=== PATIENT | male | born 1955 | race African-American/Black ===

== ENCOUNTER 2016-06-05 15:04 | Inpatient (IN) | payer OTHER ==
[2016-06-05 15:38] VITALS: BMI 29.7
--- NOTE | 2016-06-05 16:28 | HP ---
CIWA Score - CIWA Score Nausea/Vomitin-Mild Nausea/No Vomiting Muscle Tremors: 3 Anxiety: 4-Mod. Anxious/Guarded Agitation: 4-Moderately Restless Paroxysmal Sweats: 3 Orientation: 0-Oriented Tacttile Disturbances: 0-None Auditory Disturbances: 0-None Visual Disturbances: 0-None Headache: 0-None Present CIWA-Ar Total Score: 15 Admission ROS BHS - HPI Chief Complaint: WITHDRAWAL SX. Allergies/Adverse Reactions: Allergies Allergy/AdvReac Type Severity Reaction Status Date / Time No Known Allergies Allergy Verified 05/03/16 15:06 History of Present Illness: 60 Y/O MAN WITH A LONG HX. OF ALCOHOLISM IS SEEKING RE-ADMISSION TO DETOX. PT. WAS IN REHAB X 2 WKS. LEFT ON 05/20/16 THEN BEGAN DRINKING THE SAME DAY. PT. WAS SENT FOR DETOX BY "[facility]" BEFORE HE COULD BE PLACED IN HOUSING. Exam Limitations: No Limitations - Ebola screening Have you traveled outside of the country in the last 21 days: No (N) Have you had contact with anyone from an Ebola affected area: No Have you been sick,other than usual withdrawal symptoms: No Do you have a fever: No - Review of Systems Constitutional: Diaphoresis EENT: reports: No Symptoms Reported Respiratory: reports: No Symptoms reported Cardiac: reports: No Symptoms Reported GI: reports: No Symptoms Reported : reports: Frequency Musculoskeletal: reports: Joint Pain Integumentary: reports: Sweating Neuro: reports: Tremors Endocrine: reports: No Symptoms Reported Hematology: reports: No Symptoms Reported Psychiatric: reports: No Sypmtoms Reported Other Systems: Reviewed and Negative Patient History - Patient Medical History Hx Anemia: No Hx Asthma: Yes Hx Chronic Obstructive Pulmonary Disease (COPD): No Hx Cancer: No Hx Cardiac Disorders: No Hx Congestive Heart Failure: No Hx Hypertension: Yes (Intermitten hypertension) Hx Hypercholesterolemia: No Hx Pacemaker: No HX Cerebrovascular Accident: No Hx Seizures: No Hx Dementia: No Hx Diabetes: No Hx Gastrointestinal Disorders: No Hx Liver Disease: No Hx Genitourinary Disorders: No Hx Sexually Transmitted Disorders: No Hx Renal Disease (ESRD): No Hx Thyroid Disease: No Hx Human Immunodeficiency Virus (HIV): No Hx Hepatitis C: No (Last Tested approx. 2 weeks ago: NEGATIVE.) Hx Depression: No Hx Suicide Attempt: No Hx Bipolar Disorder: No Hx Schizophrenia: No - Patient Surgical History Past Surgical History: Yes Hx Neurologic Surgery: No Hx Cataract Extraction: No Hx Cardiac Surgery: No Hx Lung Surgery: No Hx Breast Surgery: No Hx Breast Biopsy: No Hx Abdominal Surgery: Yes (Sx perforated ulcer, in the 1980s.) Hx Appendectomy: No Hx Cholecystectomy: No Hx Genitourinary Surgery: No Hx Orthopedic Surgery: Yes (RT. WRIST FX; @ 1990s) Other Surgical History: Tonsillectomy during childhood. Anesthesia Reaction: No - PPD History Previous Implant?: Yes Documented Results: Negative w/proof Implanted On Prior [facility] Admission?: Yes Date: 03/17/16 Results: 0mm per records PPD to be Administered?: No - Smoking Cessation Smoking history: Current every day smoker Have you smoked in the past 12 months: Yes Aproximately how many cigarettes per day: 20 Cigars Per Day: 0 Hx Chewing Tobacco Use: No Initiated information on smoking cessation: Yes 'Breaking Loose' booklet given: 06/05/16 - Substance & Tx. History Hx Alcohol Use: Yes Hx Substance Use: No Substance Use Type: Alcohol Hx Substance Use Treatment: Yes (DETOX & REHAB) - Substances Abused Alcohol Route: Oral Frequency: Daily Amount used: BEER 1-2(6PACK), VODKA 1/2 PINT Age of first use: 14 Date of Last Use: 06/05/16 Family Disease History - Family Disease History Family Disease History: Heart Disease: Mother, [place]: Father (Prostate.) Admission Physical Exam BHS - Vital Signs Vital Signs: Vital Signs - 24 hr 06/05/16 15:35 Temperature 96.9 F L Pulse Rate 93 H Respiratory 18 Rate Blood Pressure 123/71 - Physical General Appearance: Yes: Alcohol on Breath, Tremorous, Sweating, Anxious HEENTM: Yes: Within Normal Limits Respiratory: Yes: Chest Non-Tender, Lungs Clear, Normal Breath Sounds Neck: Yes: Supple Breast: Yes: Breast Exam Deferred Cardiology: Yes: Regular Rhythm, Regular Rate, S1, S2 Abdominal: Yes: Normal Bowel Sounds, Non Tender, Soft Genitourinary: Yes: Within Normal Limits Back: Yes: Within Normal Limits Musculoskeletal: Yes: Joint swelling (RT. KNEE) Extremities: Yes: Tremors, Swelling (CHRONIC BOTH LOWER EXTREMITIES) Neurological: Yes: Fully Oriented, Alert Integumentary: Yes: Diaphoresis Lymphatic: Yes: Within Normal Limits - Diagnostic (1) Alcohol dependence with uncomplicated withdrawal Current Visit: Yes Status: Acute (2) Asthma Current Visit: Yes Status: Chronic Qualifiers: Asthma severity: mild intermittent Asthma complication type: uncomplicated Qualified Code(s): J45.20 - Mild intermittent asthma, uncomplicated (3) Nicotine dependence Current Visit: Yes Status: Chronic Qualifiers: Nicotine product type: cigarettes Substance use status: uncomplicated Qualified Code(s): F17.210 - Nicotine dependence, cigarettes, uncomplicated (4) Venous (peripheral) insufficiency Current Visit: Yes Status: Chronic Cleared for Admission S - Detox or Rehab [facility] Level of Care: Medically Managed Detox Regimen/Protocol: Librium S Breath Alcohol Content Breath Alcohol Content: 0.089 Urine Drug Screen - Results Drug Screen Negative: Yes
[2016-06-05] MEDS ORDERED: MAG HYDROX/AL HYDROX/SIMETH 30 ML UNIT-DOSE CUP PO PRN (16:36)
[2016-06-05] MEDS ORDERED: P-EPHED 60MG/TRIPROLIDI 2.5MG TABLET PO PRN (16:36)
[2016-06-05] MEDS ORDERED: chlordiazePOXIDE HCL 25 MG CAPSULE PO PRN (16:36)
[2016-06-05] MEDS ORDERED: hydrOXYzine PAMOATE 50 MG CAPSULE (FP) PO PRN (16:36)
[2016-06-05] MEDS ORDERED: MENTHOL/PHENOL 1 EACH UD MM PRN (16:36)
[2016-06-05] MEDS ORDERED: IBUPROFEN 400 MG TABLET (FP) PO PRN (16:36)
[2016-06-05] MEDS ORDERED: guaiFENesin/D-METHORPHAN HB 10 ML UNIT-DOSE CUPS PO PRN (16:36)
[2016-06-05] MEDS ORDERED: LOPERAMIDE HCL 2 MG CAPSULE PO PRN (16:36)
[2016-06-05] MEDS ORDERED: ACETAMINOPHEN 325 MG TABLET (FP) PO PRN (16:36)
[2016-06-05] MEDS ORDERED: NICOTINE POLACRILEX 2 MG GUM BC PRN (16:36)
[2016-06-05] MEDS ORDERED: MAGNESIUM HYDROX 2400MG/30ML ORAL SUSPENSION 30 ML CUP PO PRN (16:36)
[2016-06-05] MEDS ORDERED: chlordiazePOXIDE HCL 25 MG CAPSULE PO ONE (16:36)
[2016-06-05] MEDS ORDERED: MAGNESIUM CITRATE 300 ML BOTTLE PO PRN (16:36)
[2016-06-05] MEDS ORDERED: ALBUTEROL SO4 6.7 GM HFA INHALER IH PRN (16:38)
[2016-06-05] MEDS: chlordiazePOXIDE HCL 25 MG CAPSULE PO SCH ×2 (17:36→22:12)
[2016-06-05] MEDS: NICOTINE 21 MG/24 HOURS TOPICAL PATCH TD SCH (17:37)
[2016-06-05] MEDS: diphenhydrAMINE HCL 50 MG CAPSULE PO PRN (22:12)
[2016-06-05] MEDS: THIAMINE HCL 100 MG TABLET (FP) PO SCH (22:12)
[2016-06-05] MEDS: MONTELUKAST NA 10 MG TABLET PO SCH (22:12)
[2016-06-06] MEDS: chlordiazePOXIDE HCL 25 MG CAPSULE PO SCH ×4 (05:24→22:09)
[2016-06-06 09:48] LABS: MCH 29.3 pg (25.7-33.7); MCHC 32.8 g/dl (32.0-35.9); MEAN CELL VOLUME 89.3 fl (80-96); MEAN PLT VOLUME 7.8 fl (7.5-11.1); PLATELET COUNT 212 K/MM3 (134-434); RDW 15.4 % (11.9-15.9); URINE APPEARANCE SLCLOUDY; URINE BILIRUBIN NEGATIVE (NEGATIVE); URINE COLOR YELLOW; URINE GLUCOSE (UA) NEGATIVE (NEGATIVE); URINE KETONE NEGATIVE (NEGATIVE); URINE NITRITE POSITIVE (NEGATIVE); URINE UROBILINOGEN 4.0 E.U/dl E.U./dl (0.2-1.0); WHITE BLOOD COUNT 5.3 K/mm3 (4.0-10.0)
[2016-06-06 09:58] LABS: ALBUMIN 3.2 g/dl (3.4-5.0); ANION GAP 7 (8-16); CO2 35 mmol/L (21-32); CREATININE 0.8 mg/dL (0.7-1.3); GLUCOSE,RANDOM 87 mg/dL (74-106); SGOT/AST 14 U/L (15-37); SGPT/ALT 18 U/L (12-78)
[2016-06-06 09:59] LABS: ALK PHOS 59 U/L (45-117); TOT PROT 6.6 g/dl (6.4-8.2)
[2016-06-06] MEDS: PRENATAL VITAMINS W/ FOLIC ACID TABLET (FP) PO SCH (10:10)
[2016-06-06] MEDS: NICOTINE 21 MG/24 HOURS TOPICAL PATCH TD SCH (10:12)
--- NOTE | 2016-06-06 10:28 | PN ---
BHS CIWA - CIWA Score Nausea/Vomitin-Mild Nausea/No Vomiting Muscle Tremors: 4-Moderate,w/Arms Extend Anxiety: 3 Agitation: 3 Paroxysmal Sweats: 3 Orientation: 0-Oriented Tacttile Disturbances: 1-Very Mild Itch/Numbness Auditory Disturbances: 0-None Visual Disturbances: 0-None Headache: 0-None Present CIWA-Ar Total Score: 15 BHS Progress Note (SOAP) Subjective: anxiety,tremors,sweating,interrupted sleep,restless Objective: 06/06/16 10:27 Vital Signs - 8 hr 06/06/16 06/06/16 06/06/16 03:46 06:00 10:00 Temperature 98.2 F 99.0 F Pulse Rate 77 111 H Respiratory 18 18 20 Rate Blood Pressure 121/85 128/75 Laboratory Tests 06/06/16 07:30 WBC 5.3 D RBC 4.37 Hgb 12.8 D Hct 39.0 MCV 89.3 MCHC 32.8 RDW 15.4 D Plt Count 212 MPV 7.8 labs noted Assessment: 06/06/16 10:27 Withdrawal sx. Plan: Continue detox
[2016-06-06 10:42] LABS: URINE BLOOD 3+ (NEGATIVE); URINE PROTEIN 1+ (NEGATIVE)
[2016-06-06 10:43] LABS: URINE LEUK ESTERASE 3+ (NEGATIVE)
[2016-06-06 10:49] LABS: URINE BACTERIA RARE /hpf (NONE SEEN); URINE MUCUS RARE; URINE RBC 33 /hpf (0-3); URINE WBC 140 /hpf (3-5)
[2016-06-06] MEDS ORDERED: POTASSIUM CHLORIDE TABS 20 MEQ TABLET.ER (FP) PO ONE (11:29)
[2016-06-06] MEDS: LEVOFLOXACIN 500 MG TABLET (FP) PO SCH (12:06)
[2016-06-06] MEDS: POTASSIUM CHLORIDE TABS 20 MEQ TABLET.ER (FP) PO SCH (22:09)
[2016-06-06] MEDS: diphenhydrAMINE HCL 50 MG CAPSULE PO PRN (22:09)
[2016-06-06] MEDS: THIAMINE HCL 100 MG TABLET (FP) PO SCH (22:09)
[2016-06-06] MEDS: MONTELUKAST NA 10 MG TABLET PO SCH (22:31)
[2016-06-07] MEDS: chlordiazePOXIDE HCL 25 MG CAPSULE PO SCH ×2 (05:32→10:23)
[2016-06-07] MEDS: LEVOFLOXACIN 500 MG TABLET (FP) PO SCH (05:33)
--- NOTE | 2016-06-07 09:16 | PN ---
S CIWA - CIWA Score Nausea/Vomitin Muscle Tremors: 3 Anxiety: 3 Agitation: 2 Paroxysmal Sweats: 1-Minimal Palms Moist Orientation: 0-Oriented Tacttile Disturbances: 1-Very Mild Itch/Numbness Auditory Disturbances: 1-Very Mild Visual Disturbances: 1-Very Mild Sensitivity Headache: 2-Mild CIWA-Ar Total Score: 17 BHS Progress Note (SOAP) Subjective: ALERT,IRRITABLE,ANXIOUS,INTERRUPTED SLEEP,TREMOR Objective: 06/07/16 09:09 Vital Signs Temperature 97.9 F 06/07/16 06:00 Pulse Rate 72 06/07/16 06:00 Respiratory Rate 18 06/07/16 06:00 Blood Pressure 108/83 06/07/16 06:00 O2 Sat by Pulse Oximetry (%) EKG POOR TRACING NO CHEST PAIN,NO SOB,NO DIZZINESS 06/07/16 09:32 Laboratory Last Values WBC 5.3 K/mm3 (4.0-10.0) D 06/06/16 07:30 RBC 4.37 M/mm3 (4.00-5.60) 06/06/16 07:30 Hgb 12.8 GM/dL (11.7-16.9) D 06/06/16 07:30 Hct 39.0 % (35.4-49) 06/06/16 07:30 MCV 89.3 fl (80-96) 06/06/16 07:30 MCHC 32.8 g/dl (32.0-35.9) 06/06/16 07:30 RDW 15.4 % (11.9-15.9) D 06/06/16 07:30 Plt Count 212 K/MM3 (134-434) 06/06/16 07:30 MPV 7.8 fl (7.5-11.1) 06/06/16 07:30 Sodium 139 mmol/L (136-145) 06/06/16 07:20 Potassium 2.9 mmol/L (3.5-5.1) L* D 06/06/16 07:20 Chloride 97 mmol/L (98-107) L 06/06/16 07:20 Carbon Dioxide 35 mmol/L (21-32) H D 06/06/16 07:20 Anion Gap 7 (8-16) L 06/06/16 07:20 BUN 25 mg/dL (7-18) H D 06/06/16 07:20 Creatinine 0.8 mg/dL (0.7-1.3) 06/06/16 07:20 Creat Clearance w eGFR > 60 (>60) 06/06/16 07:20 Random Glucose 87 mg/dL (74-106) D 06/06/16 07:20 Calcium 9.0 mg/dL (8.5-10.1) 06/06/16 07:20 Total Bilirubin 1.0 mg/dL (0.2-1.0) D 06/06/16 07:20 AST 14 U/L (15-37) L 06/06/16 07:20 ALT 18 U/L (12-78) 06/06/16 07:20 Alkaline Phosphatase 59 U/L (45-117) 06/06/16 07:20 Total Protein 6.6 g/dl (6.4-8.2) 06/06/16 07:20 Albumin 3.2 g/dl (3.4-5.0) L 06/06/16 07:20 Urine Color Yellow 06/06/16 07:30 Urine Appearance Slcloudy 06/06/16 07:30 Urine pH 6.0 (5.0-8.0) 06/06/16 07:30 Ur Specific [place] 1.025 (1.001-1.035) 06/06/16 07:30 Urine Protein 1+ (NEGATIVE) H 06/06/16 07:30 Urine Glucose (UA) Negative (NEGATIVE) 06/06/16 07:30 Urine Ketones Negative (NEGATIVE) 06/06/16 07:30 Urine Blood 3+ (NEGATIVE) H 06/06/16 07:30 Urine Nitrite Positive (NEGATIVE) 06/06/16 07:30 Urine Bilirubin Negative (NEGATIVE) 06/06/16 07:30 Urine Urobilinogen 4.0 e.u/dl E.U./dl (0.2-1.0) 06/06/16 07:30 Ur Leukocyte Esterase 3+ (NEGATIVE) H 06/06/16 07:30 Urine RBC 33 /hpf (0-3) 06/06/16 07:30 Urine WBC 140 /hpf (3-5) 06/06/16 07:30 Urine Bacteria Rare /hpf (NONE SEEN) 06/06/16 07:30 Urine Mucus Rare 06/06/16 07:30 RPR Titer Nonreactive (NONREACTIVE) 06/06/16 07:20 Assessment: 06/07/16 09:33 WITHDRAWAL SYMPTOM Plan: CONTINUE DETOX,K 2.9 ON K DUR,REPAEAT UA,REPEAT BMP IN AM
[2016-06-07] MEDS: NICOTINE 21 MG/24 HOURS TOPICAL PATCH TD SCH (10:23)
[2016-06-07] MEDS: POTASSIUM CHLORIDE TABS 20 MEQ TABLET.ER (FP) PO SCH ×2 (10:23→22:05)
[2016-06-07] MEDS: PRENATAL VITAMINS W/ FOLIC ACID TABLET (FP) PO SCH (10:23)
[2016-06-07] MEDS: chlordiazePOXIDE 5 MG CAPSULE PO SCH ×2 (17:40→22:05)
[2016-06-07] MEDS: MONTELUKAST NA 10 MG TABLET PO SCH (22:06)
[2016-06-07] MEDS: diphenhydrAMINE HCL 50 MG CAPSULE PO PRN (22:06)
[2016-06-07] MEDS: THIAMINE HCL 100 MG TABLET (FP) PO SCH (22:06)
[2016-06-08] MEDS: chlordiazePOXIDE 5 MG CAPSULE PO SCH ×2 (05:41→10:09)
[2016-06-08] MEDS: LEVOFLOXACIN 500 MG TABLET (FP) PO SCH (05:41)
[2016-06-08] MEDS: PRENATAL VITAMINS W/ FOLIC ACID TABLET (FP) PO SCH (10:09)
[2016-06-08] MEDS: POTASSIUM CHLORIDE TABS 20 MEQ TABLET.ER (FP) PO SCH ×2 (10:09→22:13)
[2016-06-08] MEDS: NICOTINE 21 MG/24 HOURS TOPICAL PATCH TD SCH (10:10)
--- NOTE | 2016-06-08 10:21 | PN ---
BHS Progress Note (SOAP) Subjective: INTERRUPTED SEEP, BUT FEELS BETTER Objective: 06/08/16 10:18 Vital Signs Temperature 96.3 F L 06/08/16 06:35 Pulse Rate 84 06/08/16 06:35 Respiratory Rate 18 06/08/16 06:35 Blood Pressure 117/77 06/08/16 06:35 O2 Sat by Pulse Oximetry (%) Laboratory Tests 06/06/16 06/06/16 06/06/16 07:20 07:20 07:30 WBC 5.3 D RBC 4.37 Hgb 12.8 D Hct 39.0 MCV 89.3 MCHC 32.8 RDW 15.4 D Plt Count 212 MPV 7.8 Sodium 139 Potassium 2.9 L* D Chloride 97 L Carbon Dioxide 35 H D Anion Gap 7 L BUN 25 H D Creatinine 0.8 Creat Clearance w eGFR > 60 Random Glucose 87 D Calcium 9.0 Total Bilirubin 1.0 D AST 14 L ALT 18 Alkaline Phosphatase 59 Total Protein 6.6 Albumin 3.2 L Urine Color Urine Appearance Urine pH Ur Specific [place] Urine Protein Urine Glucose (UA) Urine Ketones Urine Blood Urine Nitrite Urine Bilirubin Urine Urobilinogen Ur Leukocyte Esterase Urine RBC Urine WBC Urine Bacteria Urine Mucus RPR Titer Nonreactive 06/06/16 07:30 WBC RBC Hgb Hct MCV MCHC RDW Plt Count MPV Sodium Potassium Chloride Carbon Dioxide Anion Gap BUN Creatinine Creat Clearance w eGFR Random Glucose Calcium Total Bilirubin AST ALT Alkaline Phosphatase Total Protein Albumin Urine Color Yellow Urine Appearance Slcloudy Urine pH 6.0 Ur Specific [place] 1.025 Urine Protein 1+ H Urine Glucose (UA) Negative Urine Ketones Negative Urine Blood 3+ H Urine Nitrite Positive Urine Bilirubin Negative Urine Urobilinogen 4.0 e.u/dl Ur Leukocyte Esterase 3+ H Urine RBC 33 Urine WBC 140 Urine Bacteria Rare Urine Mucus Rare RPR Titer PT AOX3 IN NAD AMBULATING Assessment: 06/08/16 10:19 WITHDRAWL SX'S HYPOKALEMIA RECIEVING K DUR Plan: CONT. DETOX INCREASE FLUIDS D/C IN AM
[2016-06-08 11:30] LABS: CALCIUM 9.5 mg/dL (8.5-10.1); CREATININE 0.8 mg/dL (0.7-1.3)
[2016-06-08 14:25] LABS: URINE APPEARANCE SLCLOUDY; URINE BILIRUBIN NEGATIVE (NEGATIVE); URINE BLOOD NEGATIVE (NEGATIVE); URINE COLOR LTYELLOW; URINE GLUCOSE (UA) NEGATIVE (NEGATIVE); URINE KETONE NEGATIVE (NEGATIVE); URINE LEUK ESTERASE NEGATIVE (NEGATIVE); URINE NITRITE NEGATIVE (NEGATIVE); URINE PROTEIN NEGATIVE (NEGATIVE); URINE UROBILINOGEN NEGATIVE E.U./dl (0.2-1.0)
[2016-06-08] MEDS: chlordiazePOXIDE HCL 10 MG CAPSULE PO SCH ×2 (17:49→22:13)
[2016-06-08] MEDS: THIAMINE HCL 100 MG TABLET (FP) PO SCH (22:13)
[2016-06-08] MEDS: MONTELUKAST NA 10 MG TABLET PO SCH (22:13)
[2016-06-09] MEDS: chlordiazePOXIDE HCL 10 MG CAPSULE PO SCH (05:21)
[2016-06-09] MEDS: LEVOFLOXACIN 500 MG TABLET (FP) PO SCH (05:21)
[2016-06-09 06:21] VITALS: BP 127/86; PULSE 81; TEMP 98.2
--- NOTE | 2016-06-09 08:40 | DS ---
[facility] Detox Discharge Summary Admission Date: 06/05/16 Discharge Date: 06/09/16 - History Present History: Alcohol Dependence, Cannabis Dependence, Cocaine Dependence - Physical Exam Results Vital Signs: Vital Signs Temperature 98.2 F 06/09/16 06:20 Pulse Rate 81 06/09/16 06:20 Respiratory Rate 18 06/09/16 06:20 Blood Pressure 127/86 06/09/16 06:20 O2 Sat by Pulse Oximetry (%) - Treatment Hospital Course: Detox Protocol Followed, Detoxed Safely, Responded well, Discharged Condition Good, Rehab Referral Accepted - Medication Discharge Medications: Ambulatory Orders Montelukast Na [Singulair -] 10 mg PO HS 05/03/16 Albuterol Sulfate Inhaler - [Ventolin HFA Inhaler -] 2 inh PO Q4H PRN #1 inhaler 05/19/16 Montelukast Na [Singulair -] 10 mg PO HS #30 tablet 05/19/16 - Diagnosis (1) Alcohol dependence with uncomplicated withdrawal Current Visit: Yes Status: Chronic (2) Asthma Current Visit: Yes Status: Chronic Qualifiers: Asthma severity: mild intermittent Asthma complication type: uncomplicated Qualified Code(s): J45.20 - Mild intermittent asthma, uncomplicated (3) Nicotine dependence Current Visit: Yes Status: Chronic Qualifiers: Nicotine product type: cigarettes Substance use status: uncomplicated Qualified Code(s): F17.210 - Nicotine dependence, cigarettes, uncomplicated (4) Venous (peripheral) insufficiency Current Visit: Yes Status: Chronic (5) Cannabis dependence Current Visit: Yes Status: Chronic (6) Cocaine abuse Current Visit: Yes Status: Chronic - AMA Did Patient Leave Against Medical Advice: No
[2016-06-09] MEDS: PRENATAL VITAMINS W/ FOLIC ACID TABLET (FP) PO SCH (09:40)
[2016-06-09] MEDS: POTASSIUM CHLORIDE TABS 20 MEQ TABLET.ER (FP) PO SCH (09:40)
== END 2016-06-09 10:25 | disposition home or self-care (01) | DRG 774 ==
LOC: YASAS 15:04 → Y6N 16:57
PROVIDERS: ADMIT Internal Medicine; ATTEND Internal Medicine
PROC: HZ2ZZZZ Detoxification Services for Substance Abuse Treatment (ICD-10-PCS; principal; 2016-06-05)
DX: F10.230 Alcohol dependence with withdrawal, uncomplicated (principal); F12.20 Cannabis dependence, uncomplicated; F14.10 Cocaine abuse, uncomplicated; F17.210 Nicotine dependence, cigarettes, uncomplicated; J45.20 Mild intermittent asthma, uncomplicated; E87.6 Hypokalemia; I87.2 Venous insufficiency (chronic) (peripheral); Z59.0 Homelessness
CPT/HCPCS: 36415; 80048; 80053; 81003; 81015; 85027; 86593; 87086; 87186; 93005; 93010

== ENCOUNTER 2016-06-12 13:04 | Inpatient (IN) | payer OTHER ==
[2016-06-12 14:24] VITALS: BMI 31.4
--- NOTE | 2016-06-12 14:48 | PN ---
S CIWA - CIWA Score Nausea/Vomitin-Mild Nausea/No Vomiting Muscle Tremors: 4-Moderate,w/Arms Extend Anxiety: 4-Mod. Anxious/Guarded Agitation: 1-Slight > Activity Paroxysmal Sweats: 1-Minimal Palms Moist Orientation: 0-Oriented Tacttile Disturbances: 1-Very Mild Itch/Numbness Auditory Disturbances: 1-Very Mild Visual Disturbances: 1-Very Mild Sensitivity Headache: 2-Mild CIWA-Ar Total Score: 16
--- NOTE | 2016-06-12 16:17 | HP ---
CIWA Score - CIWA Score Nausea/Vomitin-Mild Nausea/No Vomiting Muscle Tremors: 4-Moderate,w/Arms Extend Anxiety: 4-Mod. Anxious/Guarded Agitation: 1-Slight > Activity Paroxysmal Sweats: 1-Minimal Palms Moist Orientation: 0-Oriented Tacttile Disturbances: 1-Very Mild Itch/Numbness Auditory Disturbances: 1-Very Mild Visual Disturbances: 1-Very Mild Sensitivity Headache: 2-Mild CIWA-Ar Total Score: 16 Admission ROS BHS - HPI Chief Complaint: i need help to stop drinking alcohol,cocaine and marijuana Allergies/Adverse Reactions: Allergies Allergy/AdvReac Type Severity Reaction Status Date / Time No Known Allergies Allergy Verified 06/12/16 18:03 History of Present Illness: this 60 years old male with alcohol,cocaine and marijuana dependence,withdrawal symptom,last detox 06/05/16 to 06/09/15 syncope alcohol related nicotine dependence longest period of sobriety 3 years - Ebola screening Have you traveled outside of the country in the last 21 days: No Have you had contact with anyone from an Ebola affected area: No Have you been sick,other than usual withdrawal symptoms: No Do you have a fever: No - Review of Systems Constitutional: Loss of Appetite, Malaise, Night Sweats, Changes in sleep, Weakness EENT: reports: Nose Congestion Respiratory: reports: No Symptoms reported Cardiac: reports: No Symptoms Reported GI: reports: Nausea, Vomiting, Abdominal cramping : reports: No Symptoms Reported Musculoskeletal: reports: Back Pain, Muscle Pain Integumentary: reports: Dryness Neuro: reports: Headache, Tremors Endocrine: reports: No Symptoms Reported Hematology: reports: No Symptoms Reported Psychiatric: reports: Anxious, Depressed (insomnia) Patient History - Patient Medical History Hx Anemia: No Hx Asthma: Yes (on albuterol inhaler) Hx Chronic Obstructive Pulmonary Disease (COPD): No Hx Cancer: No Hx Cardiac Disorders: No Hx Congestive Heart Failure: No Hx Hypertension: Yes (Intermitten hypertension no med) Hx Hypercholesterolemia: No Hx Pacemaker: No HX Cerebrovascular Accident: No Hx Seizures: No Hx Dementia: No Hx Diabetes: No Hx Gastrointestinal Disorders: No Hx Liver Disease: No Hx Genitourinary Disorders: No Hx Sexually Transmitted Disorders: No Hx Renal Disease (ESRD): No Hx Thyroid Disease: No Hx Human Immunodeficiency Virus (HIV): No (2014 last negative) Hx Hepatitis C: No (Last Tested approx. 2 weeks ago: NEGATIVE.) Hx Depression: Yes (anxiety) Hx Suicide Attempt: No Hx Bipolar Disorder: No Hx Schizophrenia: No Other Medical History: no suicidal,no homicidal - Patient Surgical History Past Surgical History: Yes Hx Neurologic Surgery: No Hx Cataract Extraction: No Hx Cardiac Surgery: No Hx Lung Surgery: No Hx Breast Surgery: No Hx Breast Biopsy: No Hx Abdominal Surgery: Yes (Sx perforated ulcer, in the .) Hx Appendectomy: No Hx Cholecystectomy: No Hx Genitourinary Surgery: No Hx Orthopedic Surgery: Yes (RT. WRIST FX; @ ) Other Surgical History: Tonsillectomy during childhood. Anesthesia Reaction: No - PPD History Previous Implant?: Yes Documented Results: Negative w/proof Date: 03/17/16 Results: 0mm per records PPD to be Administered?: No - Smoking Cessation Smoking history: Current every day smoker Have you smoked in the past 12 months: Yes Aproximately how many cigarettes per day: 20 Cigars Per Day: 0 Hx Chewing Tobacco Use: No Initiated information on smoking cessation: Yes 'Breaking Loose' booklet given: 06/12/16 - Substance & Tx. History Hx Alcohol Use: Yes Hx Substance Use: Yes Substance Use Type: Alcohol, Cocaine, Marijuana Hx Substance Use Treatment: Yes ([facility] 06/05/16 tp 06/09/16) - Substances Abused Alcohol Route: Oral Frequency: Daily Amount used: 2pints of vodka/4 of 40 ozs of beer Age of first use: 14 Date of Last Use: 06/12/16 Cocaine Route: Inhalation Frequency: 3-6 times per week Amount used: 30$ Age of first use: 29 Date of Last Use: 06/10/16 Marijuana/Hashish Route: Smoking Frequency: 1-2 times per week Amount used: 20$ Age of first use: 24 Date of Last Use: 06/09/16 Family Disease History - Family Disease History Family Disease History: Heart Disease: Mother, [place]: Father (Prostate.) Admission Physical Exam S - Vital Signs Vital Signs: Vital Signs - 24 hr 06/12/16 14:22 Temperature 96.4 F L Pulse Rate 91 H Respiratory 18 Rate Blood Pressure 124/77 - Physical General Appearance: Yes: Moderate Distress, Intoxicated, Tremorous, Irritable, Sweating, Anxious HEENTM: Yes: Nasal Congestion Respiratory: Yes: Lungs Clear Neck: Yes: Within Normal Limits Breast: Yes: Within Normal Limits Cardiology: Yes: Within Normal Limits, Regular Rate, S1, S2 Abdominal: Yes: Within Normal Limits, Normal Bowel Sounds, Non Tender, Soft Genitourinary: Yes: Within Normal Limits Back: Yes: Muscle Spasm Extremities: Yes: Tremors Neurological: Yes: tank cooper II-XII NML intact, Fully Oriented, Alert, Motor Strength 5/5 Integumentary: Yes: Dry Lymphatic: Yes: Within Normal Limits - Diagnostic (1) Alcohol dependence with uncomplicated withdrawal Status: Acute (2) Asthma Status: Chronic Qualifiers: Asthma severity: mild intermittent Asthma complication type: uncomplicated Qualified Code(s): J45.20 - Mild intermittent asthma, uncomplicated (3) Cannabis dependence Status: Acute (4) Cocaine abuse Status: Chronic (5) Nicotine dependence Status: Chronic Qualifiers: Nicotine product type: cigarettes Substance use status: uncomplicated Qualified Code(s): F17.210 - Nicotine dependence, cigarettes, uncomplicated (6) Venous (peripheral) insufficiency Status: Chronic Cleared for Admission [facility] - Detox or Rehab [facility] Level of Care: Medically Managed Detox Regimen/Protocol: Librium [facility] Breath Alcohol Content Breath Alcohol Content: 0 Urine Drug Screen - Results Drug Screen Negative: No Urine Drug Screen Results: BZO-Benzodiazepines
[2016-06-12] MEDS ORDERED: IBUPROFEN 400 MG TABLET (FP) PO PRN (16:29)
[2016-06-12] MEDS ORDERED: ACETAMINOPHEN 325 MG TABLET (FP) PO PRN (16:29)
[2016-06-12] MEDS ORDERED: MAGNESIUM HYDROX 2400MG/30ML ORAL SUSPENSION 30 ML CUP PO PRN (16:29)
[2016-06-12] MEDS ORDERED: LOPERAMIDE HCL 2 MG CAPSULE PO PRN (16:29)
[2016-06-12] MEDS ORDERED: MENTHOL/PHENOL 1 EACH UD MM PRN (16:29)
[2016-06-12] MEDS ORDERED: P-EPHED 60MG/TRIPROLIDI 2.5MG TABLET PO PRN (16:29)
[2016-06-12] MEDS ORDERED: hydrOXYzine PAMOATE 25 MG CAPSULE (FP) PO PRN (16:29)
[2016-06-12] MEDS ORDERED: MAG HYDROX/AL HYDROX/SIMETH 30 ML UNIT-DOSE CUP PO PRN (16:29)
[2016-06-12] MEDS ORDERED: guaiFENesin/D-METHORPHAN HB 10 ML UNIT-DOSE CUPS PO PRN (16:29)
[2016-06-12] MEDS ORDERED: MAGNESIUM CITRATE 300 ML BOTTLE PO PRN (16:29)
[2016-06-12] MEDS ORDERED: chlordiazePOXIDE HCL 25 MG CAPSULE PO PRN (16:32)
[2016-06-12] MEDS ORDERED: chlordiazePOXIDE HCL 25 MG CAPSULE PO ONE (16:32)
[2016-06-12] MEDS ORDERED: ALBUTEROL SO4 6.7 GM HFA INHALER IH PRN (16:36)
[2016-06-12] MEDS ORDERED: chlordiazePOXIDE HCL 25 MG CAPSULE ONE (19:27)
[2016-06-12] MEDS: THIAMINE HCL 100 MG TABLET (FP) PO SCH (22:48)
[2016-06-12] MEDS: MONTELUKAST NA 10 MG TABLET PO SCH (22:48)
[2016-06-12] MEDS: chlordiazePOXIDE HCL 25 MG CAPSULE PO SCH (22:48)
[2016-06-13] MEDS: chlordiazePOXIDE HCL 25 MG CAPSULE PO SCH ×4 (05:25→22:36)
[2016-06-13] MEDS: PRENATAL VITAMINS W/ FOLIC ACID TABLET (FP) PO SCH (10:05)
[2016-06-13 10:30] LABS: MCH 29.5 pg (25.7-33.7); MCHC 32.9 g/dl (32.0-35.9); MEAN CELL VOLUME 89.8 fl (80-96); MEAN PLT VOLUME 7.9 fl (7.5-11.1); PLATELET COUNT 249 K/MM3 (134-434); RDW 15.7 % (11.9-15.9); WHITE BLOOD COUNT 3.4 K/mm3 (4.0-10.0)
[2016-06-13 10:41] LABS: ALBUMIN 2.9 g/dl (3.4-5.0); ALK PHOS 54 U/L (45-117); ANION GAP 7 (8-16); BILIRUBIN,TOTAL 0.2 mg/dL (0.2-1.0); CALCIUM 8.6 mg/dL (8.5-10.1); CO2 30 mmol/L (21-32); CREATININE 0.8 mg/dL (0.7-1.3); GLUCOSE,RANDOM 88 mg/dL (74-106); SGOT/AST 17 U/L (15-37); SGPT/ALT 26 U/L (12-78)
--- NOTE | 2016-06-13 16:40 | PN ---
S CIWA - CIWA Score Nausea/Vomitin-Mild Nausea/No Vomiting Muscle Tremors: 3 Anxiety: 4-Mod. Anxious/Guarded Agitation: 4-Moderately Restless Paroxysmal Sweats: No Perspiration Orientation: 0-Oriented Tacttile Disturbances: 1-Very Mild Itch/Numbness Auditory Disturbances: 0-None Visual Disturbances: 0-None Headache: 2-Mild CIWA-Ar Total Score: 15 BHS Progress Note (SOAP) Subjective: Restless, anxiety, tremor, nausea, interrupted sleep, sweating Objective: 06/13/16 16:39 Last Vital Signs Temp Pulse Resp BP Pulse Ox 96.4 F L 102 H 18 134/80 06/13/16 13:59 06/13/16 13:59 06/13/16 13:59 06/13/16 13:59 Laboratory Tests 06/13/16 06/13/16 06/13/16 08:00 08:00 08:00 WBC 3.4 L D RBC 3.82 L Hgb 11.3 L D Hct 34.3 L MCV 89.8 MCHC 32.9 RDW 15.7 Plt Count 249 MPV 7.9 Sodium 144 Potassium 4.1 Chloride 107 Carbon Dioxide 30 Anion Gap 7 L BUN 16 Creatinine 0.8 Creat Clearance w eGFR > 60 Random Glucose 88 D Calcium 8.6 Total Bilirubin 0.2 D AST 17 D ALT 26 D Alkaline Phosphatase 54 Total Protein 6.0 L Albumin 2.9 L RPR Titer Nonreactive Labs noted: serum albumin 2.9 Assessment: 06/13/16 16:40 Withdrawal symptoms Hypoalbuminemia noted Plan: Continue detox Hypoalbuminemia: high calorie/high protein diet
[2016-06-13] MEDS: diphenhydrAMINE HCL 50 MG CAPSULE PO PRN (22:36)
[2016-06-13] MEDS: MONTELUKAST NA 10 MG TABLET PO SCH (22:36)
[2016-06-13] MEDS: THIAMINE HCL 100 MG TABLET (FP) PO SCH (22:36)
[2016-06-14] MEDS: chlordiazePOXIDE HCL 25 MG CAPSULE PO SCH ×3 (05:42→17:02)
[2016-06-14] MEDS: PRENATAL VITAMINS W/ FOLIC ACID TABLET (FP) PO SCH (10:27)
[2016-06-14 11:05] LABS: URINE APPEARANCE CLEAR; URINE BILIRUBIN NEGATIVE (NEGATIVE); URINE BLOOD NEGATIVE (NEGATIVE); URINE COLOR STRAW; URINE GLUCOSE (UA) NEGATIVE (NEGATIVE); URINE KETONE NEGATIVE (NEGATIVE); URINE LEUK ESTERASE NEGATIVE (NEGATIVE); URINE NITRITE NEGATIVE (NEGATIVE); URINE PROTEIN NEGATIVE (NEGATIVE); URINE UROBILINOGEN NEGATIVE E.U./dl (0.2-1.0)
--- NOTE | 2016-06-14 11:06 | PN ---
BHS Progress Note (SOAP) Subjective: ANXIETY,TREMORS,SWEATING,INTERRUPTED SLEEP,RESTLESS Objective: 06/14/16 11:06 Vital Signs - 8 hr 06/14/16 06/14/16 06/14/16 03:19 06:17 10:17 Temperature 97.6 F 96.6 F L Pulse Rate 72 96 H Respiratory 18 18 19 Rate Blood Pressure 140/88 146/94 Laboratory Tests 06/13/16 06/13/16 06/13/16 08:00 08:00 08:00 WBC 3.4 L D RBC 3.82 L Hgb 11.3 L D Hct 34.3 L MCV 89.8 MCHC 32.9 RDW 15.7 Plt Count 249 MPV 7.9 Sodium 144 Potassium 4.1 Chloride 107 Carbon Dioxide 30 Anion Gap 7 L BUN 16 Creatinine 0.8 Creat Clearance w eGFR > 60 Random Glucose 88 D Calcium 8.6 Total Bilirubin 0.2 D AST 17 D ALT 26 D Alkaline Phosphatase 54 Total Protein 6.0 L Albumin 2.9 L RPR Titer Nonreactive LABS NOTED Assessment: 06/14/16 11:06 WITHDRAWAL SX. Plan: CONTINUE DETOX
--- NOTE | 2016-06-14 14:47 | CONSULT ---
[facility] Psychiatric Consult - Data Date of interview: 06/14/16 Admission source: [facility] Identifying data: Readmission to [facility] for this 60 y/o AA male seeking detox treatment on for alcohol,cocaine and marijuana dependence.Patient is single without children,homeless,unemployed and supported on Public Assistance. Substance Abuse History: - Substance & Tx. History. Hx Alcohol Use: Yes. Hx Substance Use: Yes. Substance Use Type: Alcohol, Cocaine, Marijuana. Hx Substance Use Treatment: Yes ([facility] 06/05/16 tp 06/09/16). - Substances Abused. Alcohol. Route: Oral. Frequency: Daily. Amount used: 2pints of vodka/4 of 40 ozs of beer. Age of first use: 14. Date of Last Use: 06/12/16. Cocaine. Route: Inhalation. Frequency: 3-6 times per week. Amount used: 30$. Age of first use: 29. Date of Last Use: 06/10/16. Marijuana/Hashish. Route: Smoking. Frequency: 1-2 times per week. Amount used: 20$. Age of first use: 24. Date of Last Use: 06/09/16. Confirmed by patient. Medical History: Significant for a history of anemia,perforated gastric ulcer ( ),orthosurgery for fracture of right wrist (1989),tonsillectomy during childhood,fracture of left leg () and a history of +PPD (treated with INH for six months). Psychiatric History: Patient denies. Physical/Sexual Abuse/Trauma History: Patient denies. Mental Status Exam - Mental Status Exam Alert and Oriented to: Time, Place, Person Cognitive Function: Good Patient Appearance: Well Groomed Mood: Nervous, Anxious, Hopeful Affect: Appropriate Patient Behavior: Fatigued, Cooperative Speech Pattern: Clear, Appropriate Voice Loudness: Normal Thought Process: Goal Oriented Thought Disorder: Not Present Hallucinations: Denies Suicidal Ideation: Denies Homicidal Ideation: Denies Insight/Judgement: Fair Sleep: Well Appetite: Good Muscle strength/Tone: Normal Gait/Station: Normal Psychiatric Findings - Problem List ([place] 1, 2,3) (1) Alcohol dependence with uncomplicated withdrawal Current Visit: Yes Status: Acute (2) Cannabis dependence Current Visit: Yes Status: Acute (3) Nicotine dependence Current Visit: Yes Status: Acute Qualifiers: Nicotine product type: cigarettes Substance use status: uncomplicated Qualified Code(s): F17.210 - Nicotine dependence, cigarettes, uncomplicated (4) Cocaine dependence Current Visit: Yes Status: Acute (5) Asthma Current Visit: No Status: Chronic Qualifiers: Asthma severity: mild intermittent Asthma complication type: uncomplicated Qualified Code(s): J45.20 - Mild intermittent asthma, uncomplicated (6) Venous (peripheral) insufficiency Current Visit: Yes Status: Chronic - Initial Treatment Plan Initial Treatment Plan: Psychoeducation.Detoxification.Observation.
[2016-06-14] MEDS: chlordiazePOXIDE 5 MG CAPSULE PO SCH (22:08)
[2016-06-14] MEDS: THIAMINE HCL 100 MG TABLET (FP) PO SCH (22:09)
[2016-06-14] MEDS: MONTELUKAST NA 10 MG TABLET PO SCH (22:09)
[2016-06-15] MEDS: chlordiazePOXIDE 5 MG CAPSULE PO SCH ×3 (05:53→17:51)
[2016-06-15] MEDS: PRENATAL VITAMINS W/ FOLIC ACID TABLET (FP) PO SCH (10:20)
--- NOTE | 2016-06-15 11:29 | PN ---
BHS Progress Note (SOAP) Subjective: ANXIETY, SWEATS/CHILLS. Objective: 06/15/16 11:32 Vital Signs Temperature 97.1 F L 06/15/16 09:49 Pulse Rate 87 06/15/16 09:49 Respiratory Rate 18 06/15/16 09:49 Blood Pressure 142/93 06/15/16 09:49 O2 Sat by Pulse Oximetry (%) Assessment: 06/15/16 11:32 WITHDRAWAL SX Plan: CONTINUE DETOX
[2016-06-15] MEDS: chlordiazePOXIDE HCL 10 MG CAPSULE PO SCH (22:02)
[2016-06-15] MEDS: MONTELUKAST NA 10 MG TABLET PO SCH (22:02)
[2016-06-15] MEDS: THIAMINE HCL 100 MG TABLET (FP) PO SCH (22:02)
[2016-06-15] MEDS: diphenhydrAMINE HCL 50 MG CAPSULE PO PRN (22:03)
[2016-06-16] MEDS: chlordiazePOXIDE HCL 10 MG CAPSULE PO SCH (05:52)
[2016-06-16 06:31] VITALS: BP 142/96; PULSE 93; TEMP 96.7
--- NOTE | 2016-06-16 08:52 | DS ---
[facility] Detox Discharge Summary Admission Date: 06/12/16 Discharge Date: 06/16/16 - History Present History: Alcohol Dependence, Cannabis Dependence, Cocaine Dependence Additional Comments: NONE Pertinent Past History: ASTHMA VENOUS INSUFFICIENCY - Physical Exam Results Vital Signs: Vital Signs Temperature 96.7 F L 06/16/16 06:31 Pulse Rate 93 H 06/16/16 06:31 Respiratory Rate 18 06/16/16 06:31 Blood Pressure 142/96 06/16/16 06:31 O2 Sat by Pulse Oximetry (%) Pertinent Admission Physical Exam Findings: WITHDRAWAL SX - Treatment Hospital Course: Detox Protocol Followed, Detoxed Safely, Responded well, Discharged Condition Good - Medication Discharge Medications: Ambulatory Orders Montelukast Na [Singulair -] 10 mg PO HS 05/03/16 Albuterol Sulfate Inhaler - [Ventolin HFA Inhaler -] 2 inh PO Q4H PRN #1 inhaler 06/09/16 Montelukast Na [Singulair -] 10 mg PO HS #30 tablet 06/09/16 - Diagnosis (1) Alcohol dependence with uncomplicated withdrawal Current Visit: Yes Status: Acute (2) Cannabis dependence Current Visit: Yes Status: Acute (3) Cocaine dependence Current Visit: Yes Status: Acute (4) Nicotine dependence Current Visit: Yes Status: Chronic Qualifiers: Nicotine product type: cigarettes Substance use status: uncomplicated Qualified Code(s): F17.210 - Nicotine dependence, cigarettes, uncomplicated (5) Venous (peripheral) insufficiency Current Visit: Yes Status: Chronic (6) Asthma Current Visit: Yes Status: Chronic Qualifiers: Asthma severity: mild intermittent Asthma complication type: uncomplicated Qualified Code(s): J45.20 - Mild intermittent asthma, uncomplicated - AMA Did Patient Leave Against Medical Advice: No
--- NOTE | 2016-06-16 09:46 | EKG ---
Test Reason : Blood Pressure : / mmHG Vent. Rate : 077 BPM Atrial Rate : 077 BPM P-R Int : 160 ms QRS Dur : 092 ms QT Int : 412 ms P-R-T Axes : 059 029 058 degrees QTc Int : 466 ms NORMAL SINUS RHYTHM NORMAL ECG NO PREVIOUS ECGS AVAILABLE Confirmed by YAMILET RIGGS, DANIEL ([id number]) on 06/16/2016 9:45:37 AM Referred By: Confirmed By:DANIEL WOODARD MD
== END 2016-06-16 09:35 | disposition home or self-care (01) | DRG 774 ==
LOC: YASAS 13:04 → Y3N 17:12
PROVIDERS: ADMIT Internal Medicine; ATTEND Internal Medicine
PROC: HZ2ZZZZ Detoxification Services for Substance Abuse Treatment (ICD-10-PCS; principal; 2016-06-12)
DX: F10.230 Alcohol dependence with withdrawal, uncomplicated (principal); F14.20 Cocaine dependence, uncomplicated; F12.20 Cannabis dependence, uncomplicated; F17.210 Nicotine dependence, cigarettes, uncomplicated; J45.20 Mild intermittent asthma, uncomplicated; D64.9 Anemia, unspecified; I87.2 Venous insufficiency (chronic) (peripheral); E88.09 Other disorders of plasma-protein metabolism, not elsewhere classified; Z87.11 Personal history of peptic ulcer disease; Z86.79 Personal history of other diseases of the circulatory system; Z59.0 Homelessness
CPT/HCPCS: 36415; 80053; 81003; 85027; 86593; 93005; 93010

== ENCOUNTER 2016-08-06 21:51 | Inpatient (IN) | payer OTHER ==
[2016-08-06 22:25] VITALS: BMI 29.7
--- NOTE | 2016-08-06 23:23 | HP ---
CIWA Score - CIWA Score Nausea/Vomitin-Mild Nausea/No Vomiting Muscle Tremors: 4-Moderate,w/Arms Extend Anxiety: 4-Mod. Anxious/Guarded Agitation: 4-Moderately Restless Paroxysmal Sweats: 1-Minimal Palms Moist Orientation: 3-Disoriented Date>2 days Tacttile Disturbances: 0-None Auditory Disturbances: 0-None Visual Disturbances: 0-None Headache: 1-Very Mild CIWA-Ar Total Score: 18 Admission ROS S - HPI Chief Complaint: WITHDRAWAL SX Allergies/Adverse Reactions: Allergies Allergy/AdvReac Type Severity Reaction Status Date / Time No Known Allergies Allergy Verified 06/12/16 18:03 History of Present Illness: 60 YEARS OLD MALE WITH LONG HISTORY OF ALCOHOL NICOTINE DEPENDENCE, DENIES MEDICAL DENIES MENTAL HEALTH ISSUE IS ADMITTED TO DETOX Exam Limitations: No Limitations - Ebola screening Have you traveled outside of the country in the last 21 days: No (N) Have you had contact with anyone from an Ebola affected area: No Have you been sick,other than usual withdrawal symptoms: No Do you have a fever: No - Review of Systems Constitutional: Chills, Changes in sleep, Weight Stable EENT: reports: Dental Problems (NO TEETH ABLE TO CHEW REGULAR FOOD) Respiratory: reports: No Symptoms reported Cardiac: reports: No Symptoms Reported GI: reports: Diarrhea, Nausea, Poor Fluid Intake, Abdominal cramping : reports: No Symptoms Reported Musculoskeletal: reports: No Symptoms Reported Integumentary: reports: No Symptoms Reported Neuro: reports: Tremors Endocrine: reports: No Symptoms Reported Hematology: reports: No Symptoms Reported Psychiatric: reports: Judgement Intact, Mood/Affect Appropiate Other Systems: Reviewed and Negative Patient History - Patient Medical History Hx Anemia: No Hx Asthma: Yes (on albuterol inhaler) Hx Chronic Obstructive Pulmonary Disease (COPD): No Hx Cancer: No Hx Cardiac Disorders: No Hx Congestive Heart Failure: No Hx Hypertension: No (DENIES ) Hx Hypercholesterolemia: No Hx Pacemaker: No HX Cerebrovascular Accident: No Hx Seizures: No Hx Dementia: No Hx Diabetes: No Hx Gastrointestinal Disorders: No Hx Liver Disease: No Hx Genitourinary Disorders: No Hx Sexually Transmitted Disorders: No Hx Renal Disease (ESRD): No Hx Thyroid Disease: No Hx Human Immunodeficiency Virus (HIV): No (2014 last negative) Hx Hepatitis C: No (Last Tested approx. 2 weeks ago: NEGATIVE.) Hx Depression: No (DENIES) Hx Suicide Attempt: No Hx Bipolar Disorder: No Hx Schizophrenia: No - Patient Surgical History Past Surgical History: Yes Hx Neurologic Surgery: No Hx Cataract Extraction: No Hx Cardiac Surgery: No Hx Lung Surgery: No Hx Breast Surgery: No Hx Breast Biopsy: No Hx Abdominal Surgery: Yes (Sx perforated ulcer, in the .) Hx Appendectomy: No Hx Cholecystectomy: No Hx Genitourinary Surgery: No Hx Orthopedic Surgery: Yes (RT. WRIST FX; @ ) Other Surgical History: Tonsillectomy during childhood. Anesthesia Reaction: No - PPD History Previous Implant?: Yes Documented Results: Negative w/o proof Implanted On Prior [facility] Admission?: Yes Date: 03/17/16 Results: 0mm per records PPD to be Administered?: No - Smoking Cessation Smoking history: Current every day smoker Have you smoked in the past 12 months: Yes Aproximately how many cigarettes per day: 50 Cigars Per Day: 0 Hx Chewing Tobacco Use: No Initiated information on smoking cessation: Yes 'Breaking Loose' booklet given: 08/06/16 - Substance & Tx. History Hx Alcohol Use: Yes Hx Substance Use: No Substance Use Type: Alcohol Hx Substance Use Treatment: Yes - Substances Abused Alcohol Route: Oral Frequency: Daily Amount used: ALEJO ELDER Age of first use: 14 Date of Last Use: 08/06/16 Family Disease History - Family Disease History Family Disease History: Heart Disease: Mother (), CA: Father (Prostate.) Admission Physical Exam BHS - Vital Signs Vital Signs: Vital Signs - 24 hr 08/06/16 22:23 Temperature 98.2 F Pulse Rate 116 H Respiratory 18 Rate Blood Pressure 127/86 - Physical General Appearance: Yes: Nourished, Appropriately Dressed, Moderate Distress, Alcohol on Breath, Tremorous, Irritable, Sweating, Anxious HEENTM: Yes: Hearing grossly Normal, Normal ENT Inspection, Normocephalic, Normal Voice Respiratory: Yes: Chest Non-Tender, Lungs Clear, Normal Breath Sounds, No Respiratory Distress, No Accessory Muscle Use Neck: Yes: Supple, Trachea in good position Breast: Yes: Breasts Symetrical Cardiology: Yes: Regular Rhythm, S1, S2, Tachycardia Abdominal: Yes: Non Tender, Soft, Increased Bowel Sounds Genitourinary: Yes: Within Normal Limits Back: Yes: Normal Inspection Musculoskeletal: Yes: full range of Motion, Gait Steady, Joint swelling (FEET - WALKING) Extremities: Yes: Normal Range of Motion, Non-Tender, Tremors Neurological: Yes: Alert, Motor Strength 5/5, Normal Mood/Affect, Normal Response Integumentary: Yes: Warm, Moist Lymphatic: Yes: Within Normal Limits - Diagnostic (1) Alcohol dependence with uncomplicated withdrawal Current Visit: Yes Status: Acute (2) Asthma Current Visit: Yes Status: Acute Qualifiers: Asthma severity: mild intermittent Asthma complication type: with status asthmaticus Qualified Code(s): J45.22 - Mild intermittent asthma with status asthmaticus (3) Nicotine dependence Current Visit: Yes Status: Acute Qualifiers: Nicotine product type: cigarettes Substance use status: in withdrawal Qualified Code(s): F17.213 - Nicotine dependence, cigarettes, with withdrawal Cleared for [facility]mission [facility] - [facility] Level of Care: Medically Managed Detox Regimen/Protocol: Librium [facility] Breath Alcohol Content Breath Alcohol Content: 0.062 Urine Drug Screen - Results Drug Screen Negative: No Urine Drug Screen Results: BZO-Benzodiazepines
[2016-08-06] MEDS ORDERED: guaiFENesin/D-METHORPHAN HB 10 ML UNIT-DOSE CUPS PO PRN (23:30)
[2016-08-06] MEDS ORDERED: ACETAMINOPHEN 325 MG TABLET (FP) PO PRN (23:30)
[2016-08-06] MEDS ORDERED: IBUPROFEN 400 MG TABLET (FP) PO PRN (23:30)
[2016-08-06] MEDS ORDERED: MENTHOL/PHENOL 1 EACH UD MM PRN (23:30)
[2016-08-06] MEDS ORDERED: P-EPHED 60MG/TRIPROLIDI 2.5MG TABLET PO PRN (23:30)
[2016-08-06] MEDS ORDERED: MAG HYDROX/AL HYDROX/SIMETH 30 ML UNIT-DOSE CUP PO PRN (23:30)
[2016-08-06] MEDS ORDERED: hydrOXYzine PAMOATE 50 MG CAPSULE (FP) PO PRN (23:30)
[2016-08-06] MEDS ORDERED: chlordiazePOXIDE HCL 25 MG CAPSULE PO PRN (23:30)
[2016-08-06] MEDS ORDERED: LOPERAMIDE HCL 2 MG CAPSULE PO PRN (23:30)
[2016-08-06] MEDS ORDERED: MAGNESIUM CITRATE 300 ML BOTTLE PO PRN (23:30)
[2016-08-06] MEDS ORDERED: NICOTINE POLACRILEX 4 MG GUM BC PRN (23:30)
[2016-08-06] MEDS ORDERED: MAGNESIUM HYDROX 2400MG/30ML ORAL SUSPENSION 30 ML CUP PO PRN (23:30)
[2016-08-06] MEDS ORDERED: ALBUTEROL SO4 2.5/IPRATROPIUM 0.5 INH SOL 3 ML VIAL.NEB. NEB PRN (23:39)
[2016-08-06] MEDS ORDERED: ALBUTEROL SO4 6.7 GM HFA INHALER IH PRN (23:39)
[2016-08-06] MEDS ORDERED: COLLOIDAL OATMEAL 1 BAR EACH TP PRN (23:41)
[2016-08-07] MEDS: chlordiazePOXIDE HCL 25 MG CAPSULE PO SCH ×5 (00:17→22:20)
[2016-08-07] MEDS: NICOTINE 21 MG/24 HOURS TOPICAL PATCH TD SCH (10:15)
[2016-08-07] MEDS: PRENATAL VITAMINS W/ FOLIC ACID TABLET (FP) PO SCH (10:15)
[2016-08-07 11:18] LABS: MCH 29.7 pg (25.7-33.7); MCHC 32.9 g/dl (32.0-35.9); MEAN CELL VOLUME 90.5 fl (80-96); MEAN PLT VOLUME 8.6 fl (7.5-11.1); PLATELET COUNT 176 K/MM3 (134-434); RDW 18.5 % (11.9-15.9)
[2016-08-07 11:33] LABS: ALBUMIN 3.4 g/dl (3.4-5.0); ALK PHOS 106 U/L (45-117); ANION GAP 14 (8-16); BILIRUBIN,TOTAL 0.8 mg/dL (0.2-1.0); CALCIUM 8.5 mg/dL (8.5-10.1); CO2 37 mmol/L (21-32); CREATININE 1.2 mg/dL (0.7-1.3); GLUCOSE,RANDOM 101 mg/dL (74-106); SGOT/AST 37 U/L (15-37); SGPT/ALT 22 U/L (12-78); TOT PROT 6.9 g/dl (6.4-8.2)
--- NOTE | 2016-08-07 11:48 | PN ---
[facility] CIWA - CIWA Score Nausea/Vomitin Muscle Tremors: 3 Anxiety: 3 Agitation: 2 Paroxysmal Sweats: 1-Minimal Palms Moist Orientation: 0-Oriented Tacttile Disturbances: 1-Very Mild Itch/Numbness Auditory Disturbances: 1-Very Mild Visual Disturbances: 1-Very Mild Sensitivity Headache: 2-Mild CIWA-Ar Total Score: 17 BHS Progress Note (SOAP) Subjective: ALERT,IRRITABLE,ANXIOUS,INTERRUPTED SLEEP,TREMOR Objective: 08/07/16 11:44 Vital Signs Temperature 99.1 F 08/07/16 10:24 Pulse Rate 120 H 08/07/16 10:24 Respiratory Rate 16 08/07/16 10:24 Blood Pressure 121/77 08/07/16 10:24 O2 Sat by Pulse Oximetry (%) EKG POOR QUALITY TO REPEAT EKG TODAY 08/07/16 11:46 Laboratory Last Values WBC 4.0 K/mm3 (4.0-10.0) 08/07/16 08:00 RBC 4.78 M/mm3 (4.00-5.60) D 08/07/16 08:00 Hgb 14.2 GM/dL (11.7-16.9) D 08/07/16 08:00 Hct 43.2 % (35.4-49) D 08/07/16 08:00 MCV 90.5 fl (80-96) 08/07/16 08:00 MCHC 32.9 g/dl (32.0-35.9) 08/07/16 08:00 RDW 18.5 % (11.9-15.9) H D 08/07/16 08:00 Plt Count 176 K/MM3 (134-434) D 08/07/16 08:00 MPV 8.6 fl (7.5-11.1) 08/07/16 08:00 Sodium 144 mmol/L (136-145) 08/07/16 08:00 Chloride 93 mmol/L (98-107) L D 08/07/16 08:00 Carbon Dioxide 37 mmol/L (21-32) H D 08/07/16 08:00 Anion Gap 14 (8-16) 08/07/16 08:00 BUN 8 mg/dL (7-18) D 08/07/16 08:00 Creatinine 1.2 mg/dL (0.7-1.3) D 08/07/16 08:00 Creat Clearance w eGFR > 60 (>60) 08/07/16 08:00 Random Glucose 101 mg/dL (74-106) 08/07/16 08:00 Calcium 8.5 mg/dL (8.5-10.1) 08/07/16 08:00 Total Bilirubin 0.8 mg/dL (0.2-1.0) D 08/07/16 08:00 AST 37 U/L (15-37) D 08/07/16 08:00 ALT 22 U/L (12-78) 08/07/16 08:00 Alkaline Phosphatase 106 U/L (45-117) D 08/07/16 08:00 Total Protein 6.9 g/dl (6.4-8.2) 08/07/16 08:00 Albumin 3.4 g/dl (3.4-5.0) 08/07/16 08:00 08/07/16 11:47 K 2.7 BY LAB HYPOKALEMIA Assessment: 08/07/16 11:48 WITHDRAWAL SYMPTOM Plan: CONTINUE DETOX,K 2.7,KDUR REPLACEMENT
[2016-08-07] MEDS ORDERED: POTASSIUM CHLORIDE TABS 20 MEQ TABLET.ER (FP) PO ONE (11:49)
[2016-08-07 13:14] LABS: URINE APPEARANCE CLEAR; URINE BLOOD NEGATIVE (NEGATIVE); URINE COLOR AMBER; URINE GLUCOSE (UA) NEGATIVE (NEGATIVE); URINE KETONE NEGATIVE (NEGATIVE); URINE LEUK ESTERASE NEGATIVE (NEGATIVE); URINE NITRITE NEGATIVE (NEGATIVE); URINE UROBILINOGEN 4.0 E.U/dl E.U./dl (0.2-1.0)
[2016-08-07 13:36] LABS: URINE PROTEIN 1+ (NEGATIVE)
[2016-08-07 13:48] LABS: URINE BACTERIA RARE /hpf (NONE SEEN); URINE HYALINE CAST 3 /lpf; URINE MUCUS FEW; URINE RBC 3 /hpf (0-3); URINE WBC 2 /hpf (3-5)
[2016-08-07] MEDS: POTASSIUM CHLORIDE TABS 20 MEQ TABLET.ER (FP) PO SCH (22:20)
[2016-08-07] MEDS: THIAMINE HCL 100 MG TABLET (FP) PO SCH (22:20)
[2016-08-07] MEDS: MINERAL OIL/PETROLAT/WATER TOPICAL CREAM 113 GM JAR TP SCH (22:21)
[2016-08-08] MEDS: chlordiazePOXIDE HCL 25 MG CAPSULE PO SCH ×3 (05:26→17:55)
[2016-08-08] MEDS: POTASSIUM CHLORIDE TABS 20 MEQ TABLET.ER (FP) PO SCH ×2 (10:56→22:11)
[2016-08-08] MEDS: PRENATAL VITAMINS W/ FOLIC ACID TABLET (FP) PO SCH (10:56)
[2016-08-08] MEDS: NICOTINE 21 MG/24 HOURS TOPICAL PATCH TD SCH (10:56)
--- NOTE | 2016-08-08 12:19 | PN ---
[facility] CIWA - CIWA Score Nausea/Vomitin Muscle Tremors: 3 Anxiety: 3 Agitation: 2 Paroxysmal Sweats: 1-Minimal Palms Moist Orientation: 0-Oriented Tacttile Disturbances: 1-Very Mild Itch/Numbness Auditory Disturbances: 1-Very Mild Visual Disturbances: 1-Very Mild Sensitivity Headache: 2-Mild CIWA-Ar Total Score: 17 BHS Progress Note (SOAP) Subjective: ALERT,IRRITABLE,ANXIOUS,INTERRUPTED SLEEP,TREMOR Objective: 08/08/16 12:18 Vital Signs Temperature 98.1 F 08/08/16 09:52 Pulse Rate 113 H 08/08/16 09:52 Respiratory Rate 16 08/08/16 09:52 Blood Pressure 120/88 08/08/16 09:52 O2 Sat by Pulse Oximetry (%) Laboratory Last Values WBC 4.0 K/mm3 (4.0-10.0) 08/07/16 08:00 RBC 4.78 M/mm3 (4.00-5.60) D 08/07/16 08:00 Hgb 14.2 GM/dL (11.7-16.9) D 08/07/16 08:00 Hct 43.2 % (35.4-49) D 08/07/16 08:00 MCV 90.5 fl (80-96) 08/07/16 08:00 MCHC 32.9 g/dl (32.0-35.9) 08/07/16 08:00 RDW 18.5 % (11.9-15.9) H D 08/07/16 08:00 Plt Count 176 K/MM3 (134-434) D 08/07/16 08:00 MPV 8.6 fl (7.5-11.1) 08/07/16 08:00 Sodium 144 mmol/L (136-145) 08/07/16 08:00 Potassium 2.7 mmol/L (3.5-5.1) L* D 08/07/16 08:00 Chloride 93 mmol/L (98-107) L D 08/07/16 08:00 Carbon Dioxide 37 mmol/L (21-32) H D 08/07/16 08:00 Anion Gap 14 (8-16) 08/07/16 08:00 BUN 8 mg/dL (7-18) D 08/07/16 08:00 Creatinine 1.2 mg/dL (0.7-1.3) D 08/07/16 08:00 Creat Clearance w eGFR > 60 (>60) 08/07/16 08:00 Random Glucose 101 mg/dL (74-106) 08/07/16 08:00 Calcium 8.5 mg/dL (8.5-10.1) 08/07/16 08:00 Total Bilirubin 0.8 mg/dL (0.2-1.0) D 08/07/16 08:00 AST 37 U/L (15-37) D 08/07/16 08:00 ALT 22 U/L (12-78) 08/07/16 08:00 Alkaline Phosphatase 106 U/L (45-117) D 08/07/16 08:00 Total Protein 6.9 g/dl (6.4-8.2) 08/07/16 08:00 Albumin 3.4 g/dl (3.4-5.0) 08/07/16 08:00 Urine Color Nydia 08/07/16 10:31 Urine Appearance Clear 08/07/16 10:31 Urine pH 6.0 (5.0-8.0) 08/07/16 10:31 Ur Specific [place] 1.026 (1.001-1.035) 08/07/16 10:31 Urine Protein 1+ (NEGATIVE) H 08/07/16 10:31 Urine Glucose (UA) Negative (NEGATIVE) 08/07/16 10:31 Urine Ketones Negative (NEGATIVE) 08/07/16 10:31 Urine Blood Negative (NEGATIVE) 08/07/16 10:31 Urine Nitrite Negative (NEGATIVE) 08/07/16 10:31 Urine Bilirubin 2.0 (NEGATIVE) 08/07/16 10:31 Urine Urobilinogen 4.0 e.u/dl E.U./dl (0.2-1.0) 08/07/16 10:31 Ur Leukocyte Esterase Negative (NEGATIVE) 08/07/16 10:31 Urine RBC 3 /hpf (0-3) 08/07/16 10:31 Urine WBC 2 /hpf (3-5) 08/07/16 10:31 Ur Epithelial Cells Rare /hpf (FEW) 08/07/16 10:31 Urine Bacteria Rare /hpf (NONE SEEN) 08/07/16 10:31 Hyaline Casts 3 /lpf 08/07/16 10:31 Urine Mucus Few 08/07/16 10:31 RPR Titer Nonreactive (NONREACTIVE) 08/07/16 08:00 Assessment: 08/08/16 12:18 WITHDRAWAL SYMPTOM Plan: CONTINUE DETOX,ON K DUR FOR HYPOKALEMIA K IS 2.7 SINCE YESTERDAY,REPEAT CMP IN AM
[2016-08-08] MEDS: diphenhydrAMINE HCL 50 MG CAPSULE PO PRN (22:11)
[2016-08-08] MEDS: chlordiazePOXIDE 5 MG CAPSULE PO SCH (22:11)
[2016-08-08] MEDS: THIAMINE HCL 100 MG TABLET (FP) PO SCH (22:11)
[2016-08-08] MEDS: MINERAL OIL/PETROLAT/WATER TOPICAL CREAM 113 GM JAR TP SCH (22:12)
[2016-08-08] MEDS: cloNIDine HCL 0.1 MG TABLET PO PRN (22:13)
--- NOTE | 2016-08-08 22:44 | EKG ---
Test Reason : Blood Pressure : / mmHG Vent. Rate : 112 BPM Atrial Rate : 112 BPM P-R Int : 184 ms QRS Dur : 098 ms QT Int : 350 ms P-R-T Axes : 080 047 051 degrees QTc Int : 477 ms POOR DATA QUALITY, INTERPRETATION MAY BE ADVERSELY AFFECTED SINUS TACHYCARDIA NONSPECIFIC T WAVE ABNORMALITY BORDERLINE ECG WHEN COMPARED WITH ECG OF 12-JUN-2016 19:47, VENT. RATE HAS INCREASED Confirmed by ELENI RIGGS, YO ([id number]) on 08/08/2016 10:43:38 PM Referred By: Confirmed By:YO KNOWLES MD
[2016-08-09] MEDS: chlordiazePOXIDE 5 MG CAPSULE PO SCH ×3 (05:49→17:26)
[2016-08-09] MEDS: PRENATAL VITAMINS W/ FOLIC ACID TABLET (FP) PO SCH (10:21)
[2016-08-09] MEDS: POTASSIUM CHLORIDE TABS 20 MEQ TABLET.ER (FP) PO SCH ×2 (10:21→22:27)
[2016-08-09] MEDS: NICOTINE 21 MG/24 HOURS TOPICAL PATCH TD SCH (10:22)
[2016-08-09 11:06] LABS: ALBUMIN 2.7 g/dl (3.4-5.0); ALK PHOS 82 U/L (45-117); ANION GAP 8 (8-16); BILIRUBIN,TOTAL 0.4 mg/dL (0.2-1.0); CALCIUM 8.5 mg/dL (8.5-10.1); CO2 37 mmol/L (21-32); CREATININE 0.8 mg/dL (0.7-1.3); GLUCOSE,RANDOM 96 mg/dL (74-106); SGOT/AST 28 U/L (15-37); SGPT/ALT 18 U/L (12-78); TOT PROT 6.1 g/dl (6.4-8.2)
--- NOTE | 2016-08-09 11:09 | PN ---
BHS Progress Note (SOAP) Subjective: sweats Objective: 08/09/16 11:07 Vital Signs Temperature 97.9 F 08/09/16 10:14 Pulse Rate 109 H 08/09/16 10:14 Respiratory Rate 16 08/09/16 10:14 Blood Pressure 117/81 08/09/16 10:14 O2 Sat by Pulse Oximetry (%) Laboratory Tests 08/07/16 08/07/16 08/07/16 08:00 08:00 08:00 WBC 4.0 RBC 4.78 D Hgb 14.2 D Hct 43.2 D MCV 90.5 MCHC 32.9 RDW 18.5 H D Plt Count 176 D MPV 8.6 Sodium 144 Potassium 2.7 L* D Chloride 93 L D Carbon Dioxide 37 H D Anion Gap 14 BUN 8 D Creatinine 1.2 D Creat Clearance w eGFR > 60 Random Glucose 101 Calcium 8.5 Total Bilirubin 0.8 D AST 37 D ALT 22 Alkaline Phosphatase 106 D Total Protein 6.9 Albumin 3.4 Urine Color Urine Appearance Urine pH Ur Specific [place] Urine Protein Urine Glucose (UA) Urine Ketones Urine Blood Urine Nitrite Urine Bilirubin Urine Urobilinogen Ur Leukocyte Esterase Urine RBC Urine WBC Ur Epithelial Cells Urine Bacteria Hyaline Casts Urine Mucus RPR Titer Nonreactive 08/07/16 10:31 WBC RBC Hgb Hct MCV MCHC RDW Plt Count MPV Sodium Potassium Chloride Carbon Dioxide Anion Gap BUN Creatinine Creat Clearance w eGFR Random Glucose Calcium Total Bilirubin AST ALT Alkaline Phosphatase Total Protein Albumin Urine Color Nydia Urine Appearance Clear Urine pH 6.0 Ur Specific [place] 1.026 Urine Protein 1+ H Urine Glucose (UA) Negative Urine Ketones Negative Urine Blood Negative Urine Nitrite Negative Urine Bilirubin 2.0 Urine Urobilinogen 4.0 e.u/dl Ur Leukocyte Esterase Negative Urine RBC 3 Urine WBC 2 Ur Epithelial Cells Rare Urine Bacteria Rare Hyaline Casts 3 Urine Mucus Few RPR Titer pt aox3 in nad ambulating Assessment: 08/09/16 11:07 withdrawal sx;s hypokalemia -f/up pending labs Plan: cont. detox increase fluids if k corrected d/c in am
--- NOTE | 2016-08-09 11:32 | EKG ---
Test Reason : Blood Pressure : / mmHG Vent. Rate : 111 BPM Atrial Rate : 111 BPM P-R Int : 130 ms QRS Dur : 100 ms QT Int : 368 ms P-R-T Axes : 061 033 040 degrees QTc Int : 500 ms SINUS TACHYCARDIA OTHERWISE NORMAL ECG WHEN COMPARED WITH ECG OF 07-AUG-2016 00:10, NO SIGNIFICANT CHANGE WAS FOUND Confirmed by MARIAM VARGAS MD ([id number]) on 08/09/2016 11:31:54 AM Referred By: Confirmed By:MARIAM VARGAS MD
[2016-08-09] MEDS: cloNIDine HCL 0.1 MG TABLET PO PRN (22:27)
[2016-08-09] MEDS: THIAMINE HCL 100 MG TABLET (FP) PO SCH (22:27)
[2016-08-09] MEDS: chlordiazePOXIDE HCL 10 MG CAPSULE PO SCH (22:27)
[2016-08-09] MEDS: diphenhydrAMINE HCL 50 MG CAPSULE PO PRN (22:27)
[2016-08-10] MEDS: MINERAL OIL/PETROLAT/WATER TOPICAL CREAM 113 GM JAR TP SCH (00:09)
[2016-08-10] MEDS: chlordiazePOXIDE HCL 10 MG CAPSULE PO SCH (05:55)
--- NOTE | 2016-08-10 08:55 | DS ---
[facility] Detox Discharge Summary Admission Date: 08/06/16 Discharge Date: 08/10/16 - History Present History: Alcohol Dependence, Cannabis Dependence, Cocaine Dependence - Physical Exam Results Vital Signs: Vital Signs Temperature 98.1 F 08/10/16 06:15 Pulse Rate 75 08/10/16 06:15 Respiratory Rate 18 08/10/16 06:15 Blood Pressure 126/82 08/10/16 06:15 O2 Sat by Pulse Oximetry (%) - Treatment Hospital Course: Detox Protocol Followed, Detoxed Safely, Responded well, Discharged Condition Good, Rehab Referral Accepted - Medication Discharge Medications: Ambulatory Orders Albuterol Sulfate Inhaler - [Ventolin HFA Inhaler -] 2 inh PO Q4H PRN #1 inhaler 08/10/16 Montelukast Na [Singulair -] 10 mg PO HS #30 tablet 08/10/16 Potassium Chloride [K-Dur -] 20 meq PO BID #6 tablet.er 08/10/16 - Diagnosis (1) Alcohol dependence with uncomplicated withdrawal Current Visit: Yes Status: Chronic (2) Asthma Current Visit: Yes Status: Chronic Qualifiers: Asthma severity: mild intermittent Asthma complication type: with status asthmaticus Qualified Code(s): J45.22 - Mild intermittent asthma with status asthmaticus (3) Nicotine dependence Current Visit: Yes Status: Chronic Qualifiers: Nicotine product type: cigarettes Substance use status: uncomplicated Qualified Code(s): F17.210 - Nicotine dependence, cigarettes, uncomplicated (4) Cannabis dependence Current Visit: No Status: Acute (5) Cocaine dependence Current Visit: Yes Status: Chronic Qualifiers: Substance use status: uncomplicated Qualified Code(s): F14.20 - Cocaine dependence, uncomplicated (6) Venous (peripheral) insufficiency Current Visit: No Status: Chronic - AMA Did Patient Leave Against Medical Advice: No
[2016-08-10] MEDS: PRENATAL VITAMINS W/ FOLIC ACID TABLET (FP) PO SCH (09:43)
[2016-08-10] MEDS: POTASSIUM CHLORIDE TABS 20 MEQ TABLET.ER (FP) PO SCH (09:44)
[2016-08-10 10:06] VITALS: BP 104/74; PULSE 92; TEMP 97.5
== END 2016-08-10 09:50 | disposition home or self-care (01) | DRG 774 ==
LOC: YASAS 21:51 → Y6N 23:10
PROVIDERS: ADMIT Internal Medicine; ATTEND Internal Medicine
PROC: HZ2ZZZZ Detoxification Services for Substance Abuse Treatment (ICD-10-PCS; principal; 2016-08-10)
DX: F10.230 Alcohol dependence with withdrawal, uncomplicated (principal); F14.20 Cocaine dependence, uncomplicated; F12.20 Cannabis dependence, uncomplicated; F17.210 Nicotine dependence, cigarettes, uncomplicated; J45.22 Mild intermittent asthma with status asthmaticus; I87.2 Venous insufficiency (chronic) (peripheral); Z59.0 Homelessness
CPT/HCPCS: 36415; 80053; 81003; 81015; 85027; 86593; 93005; 93010